=== PATIENT | female | born 1950 | race Caucasian/White ===

== ENCOUNTER 2017-01-03 08:54 | Emergency (ER) | payer OTHER ==
[2017-01-03 09:09] VITALS: BP 120/74
--- NOTE | 2017-01-03 09:32 | UC ---
Complaint Female HPI - HPI Summary HPI Summary: @-3 Days of pain and burning with urination no fevers chills back pain, no nausea or vomiting - History Of Current Complaint Chief Complaint: UCGU Stated Complaint: UTI Time Seen by Provider: 01/03/17 09:20 Hx Obtained From: Patient ?: No Onset/Duration: Gradual Onset, Lasting Days, Still Present Timing: Constant Severity Initially: Mild Severity Currently: Mild Character: Burning Aggravating Factor(s): Urination Alleviating Factor(s): Nothing Associated Signs And Symptoms: Positive: Negative - Allergies/Home Medications Allergies/Adverse Reactions: Allergies Allergy/AdvReac Type Severity Reaction Status Date / Time Hydroxychloroquine Allergy CAUSED Verified 02/10/16 12:21 [From Plaquenil] CARDIAC TOXICITY, 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 2 sinus surgeries-1991, 1996,. gammaknife surgery for skull based tumor 2004,. multiple kidney stone removals,. ICD Pacemaker JUNE 2013, [place]. 2013 - 2014 cardiac catherization x 3, 2 in [place], 1 in [place]. hysterectomy/abdominal surgery 11/22/13. Heart Biopsy Oct 2014. ORIF LEFT ANKLE 07/2015 - Family History Known Family History: Positive: None, Other - no autoimmune disorders - Social History Occupation: Employed Part-time Lives: With Family Alcohol Use: None Substance Use Type: None Substance Use Comment - Amount & Last Used: vicodin as needed Smoking Status (MU): Never Smoked Tobacco Have You Smoked in the Last Year: No - Immunization History Most Recent Influenza Vaccination: season Most Recent Tetanus Shot: 01/2010 Most Recent Pneumonia Vaccination: 2010 Review of Systems Constitutional: Negative Skin: Negative Eyes: Negative ENT: Negative Respiratory: Negative Cardiovascular: Negative Gastrointestinal: Negative Genitourinary: Dysuria, Frequency, Urgency Motor: Negative Neurovascular: Negative Musculoskeletal: Negative Neurological: Negative Psychological: Negative Is Patient Immunocompromised?: Yes All Other Systems Reviewed And Are Negative: Yes Physical Exam Triage Information Reviewed: Yes Appearance: Well-Appearing, No Pain Distress, Well-Nourished Vital Signs: Initial Vital Signs Temp 97.9 F 01/03/17 09:02 Pulse 81 01/03/17 09:02 Resp 18 01/03/17 09:02 BP 120/74 01/03/17 09:02 Pulse Ox 98 01/03/17 09:02 Vital Signs Reviewed: Yes Eye Exam: Normal Eyes: Positive: Conjunctiva Clear ENT Exam: Normal ENT: Positive: Normal ENT inspection, Hearing grossly normal, Pharynx normal. Negative: Nasal drainage, Trismus, Muffled voice, Hoarse voice, Sinus tenderness Dental Exam: Normal Neck exam: Normal Neck: Positive: Supple, Nontender Respiratory Exam: Normal Respiratory: Positive: Chest non-tender, No respiratory distress, No accessory muscle use Cardiovascular Exam: Normal Cardiovascular: Positive: RRR, Pulses Normal, Brisk Capillary Refill Abdominal Exam: Normal Abdomen Description: Positive: No Organomegaly, Soft, Other: - suprapubic discomfort. Negative: CVA Tenderness (R), CVA Tenderness (L), Distended Bowel Sounds: Positive: Present Musculoskeletal Exam: Normal Musculoskeletal: Positive: Strength Intact, ROM Intact, No Edema Neurological Exam: Normal Neurological: Positive: Alert, Muscle Tone Normal Psychological Exam: Normal Skin Exam: Normal Diagnostics - Laboratory Diagnostic Studies Completed/Ordered: U/a +Nitrites, +leukoesterase, +trace lysed blood Complaint Female Dx - Course Course Of Treatment: increase fluids, cipro, follow with Dr. Montemayor - Differential Dx/Diagnosis Provider Diagnoses: UTI Discharge - Discharge Plan Condition: Stable Disposition: HOME Prescriptions: Ciprofloxacin TAB* [Cipro 250 MG Tab*] 250 mg PO BID #6 tab Patient Education Materials: Urinary Tract Infection in Women (ED) Referrals: Bladimir Mack MD [Medical Doctor] - 1 Week
--- NOTE | 2017-01-04 16:34 | UC ---
Progress - Progress Note Progress Note: Urine culture + E. coli await sensitivity Pt on cipro, no change
== END 2017-01-03 09:50 | disposition home or self-care (01) ==
LOC: UCEAST 08:54
DX: N39.0 Urinary tract infection, site not specified (principal); B96.20 Unspecified Escherichia coli [E. coli] as the cause of diseases classified elsewhere
CPT/HCPCS: 81003; 87077; 87086; 87186; 99212; G0463

== ENCOUNTER 2017-05-20 09:28 | Emergency (ER) | payer OTHER ==
[2017-05-20 09:44] VITALS: BP 117/81
--- NOTE | 2017-05-20 11:18 | UC ---
FLU HPI - HPI Summary HPI Summary: Patient is a 66-year-old female with a history of rheumatoid arthritis and chronic sinusitis presenting to the with chief complaint of sinus pressure, body aches, feeling fatigued. Denies any fevers, sweats, chills. Denies any nausea, vomiting, headaches. History of sinus surgery due to chronic sinusitis 2. She was concerned over the flu. She has been otherwise healthy. Immunizations are up-to-date. Symptoms are aggravated with nothing and relieved with nothing. Symptoms began approximately 3 days ago. Denies any cough, or other upper respiratory complaint. Currently taking Humira. - History of Current Complaint Chief Complaint: UCGeneralIllness Stated Complaint: STUFFY NOSE, ACHEY Time Seen by Provider: 05/20/17 10:06 Hx Obtained From: Patient ?: No Onset/Duration: Sudden Onset Severity Currently: Moderate Severity Initially: Moderate Pain Intensity: 6 Pain Scale Used: 0-10 Numeric Associated Signs & Symptoms: Positive: Myalgia, Nasal Congestion Related Hx: Possible Flu/Infectious Exposure - Risk Factors Influenza Risk Factors: Chronic Medical or Immunosuppresive Condition - Taking Humira daily - Allergy/Home Medications Allergies/Adverse Reactions: Allergies Allergy/AdvReac Type Severity Reaction Status Date / Time hydroxychloroquine Allergy cardiac Verified 05/20/17 09:40 [From Plaquenil] issues PMH/Surg Hx/FS Hx/Imm Hx Previously Healthy: Yes - Surgical History Surgical History: Yes Surgery Procedure, Year, and Place: splenectomy 1971,. 2 sinus surgeries-1991, 1996,. gammaknife surgery for skull based tumor 2004,. multiple kidney stone removals,. ICD Pacemaker JUNE 2013, [place]. 2013 - 2014 cardiac catherization x 3, 2 in [place], 1 in [place]. hysterectomy/abdominal surgery 11/22/13. Heart Biopsy Oct 2014. ORIF LEFT ANKLE 07/2015 - Family History Known Family History: Positive: None, Other - no autoimmune disorders - Social History Occupation: Employed Full-time Lives: With Family Alcohol Use: None Substance Use Type: None Substance Use Comment - Amount & Last Used: vicodin as needed Smoking Status (MU): Never Smoked Tobacco Have You Smoked in the Last Year: No - Immunization History Most Recent Influenza Vaccination: season Most Recent Tetanus Shot: 01/2010 Most Recent Pneumonia Vaccination: 2010 Review of Systems Constitutional: Negative Skin: Negative ENT: Nasal Discharge - Yellow, thick mucus, Sinus Congestion, Sinus Pain/ Tenderness Respiratory: Negative Cardiovascular: Negative Motor: Negative Neurovascular: Negative Musculoskeletal: Myalgia Neurological: Negative Psychological: Negative Is Patient Immunocompromised?: No All Other Systems Reviewed And Are Negative: Yes Physical Exam Triage Information Reviewed: Yes Appearance: Well-Appearing, Well-Nourished Vital Signs: Initial Vital Signs Temp 97.7 F 05/20/17 09:41 Pulse 78 05/20/17 09:41 Resp 16 05/20/17 09:41 BP 117/81 05/20/17 09:41 Pulse Ox 99 05/20/17 09:41 Vital Signs Reviewed: Yes Eye Exam: Normal Eyes: Positive: Conjunctiva Clear ENT: Positive: Dental tenderness, Sinus tenderness, Uvula midline. Negative: TM bulging, TM dull, TM red, Tonsillar swelling, Tonsillar exudate Neck exam: Normal Neck: Positive: Supple, No Lymphadenopathy Respiratory Exam: Normal Respiratory: Positive: Chest non-tender, Lungs clear Cardiovascular Exam: Normal Cardiovascular: Positive: RRR Musculoskeletal Exam: Normal Musculoskeletal: Positive: Strength Intact Neurological: Positive: Alert Psychological: Positive: Normal Response To Family Skin Exam: Normal Flu Course/Dx - Course Course Of Treatment: Patient is evaluated for flulike symptoms. Influenza swab negative. Right-sided maxillary sinus pressure and pain with a mild amount of fluctuance. No left-sided maxillary sinus pressure. Frontal sinuses without fluctuance or pain. Patient is afebrile. Other vital signs are stable. I've discussed with the patient treatment options. She is given Flonase and Mucinex. I have also given her a prescription for Augmentin, however she is unsure if she would like to use this at this time. I've advised if symptoms worsen, she is able to pick remover the Augmentin at that time but can defer for now. - Differential Dx/Diagnosis Differential Diagnosis/HQI/PQRI: Upper Respiratory Infection Provider Diagnoses: sinusitis Discharge - Sign-Out/Discharge Documenting (check all that apply): Discharge - Discharge Plan Condition: Stable Disposition: HOME Prescriptions: Amoxicillin/Clavulanate TAB* [Augmentin TAB 875*] 875 mg PO BID #14 tab Fluticasone NASAL SPRAY 50MCG* [Flonase NASAL SPRAY 50MCG*] 2 spray BOTH NARES DAILY #1 btl guaiFENesin ER TAB [Mucinex*] 600 mg PO BID #20 tab.er Patient Education Materials: Sinusitis (ED) Referrals: Aline Beckford MD [Primary Care Provider] - Additional Instructions: Tylenol for discomfort Augmentin twice daily Flonase - 2 sprays each nare once daily Mucinex 1 tab twice daily as needed for sinus pressure humidifier in the home will help Saline nasal rinses Drink plenty of water - Billing Disposition and Condition Condition: STABLE Disposition: HOME
== END 2017-05-20 10:28 | disposition home or self-care (01) ==
LOC: UCEAST 09:28
DX: J32.9 Chronic sinusitis, unspecified (principal); Z95.0 Presence of cardiac pacemaker; Z87.442 Personal history of urinary calculi
CPT/HCPCS: 87502; 99212; G0463

== ENCOUNTER 2018-03-15 09:10 | Emergency (ER) | payer OTHER ==
[2018-03-15 09:23] VITALS: BP 140/71
--- NOTE | 2018-03-15 11:29 | UC ---
Complaint Female HPI - HPI Summary HPI Summary: WOKE UP THIS MORNING 6AM WITH SHARP LEFT PELVIC/LLQ PAIN. DENIES DYSURIA OR URINARY FREQUENCY/URGENCY BUT URINE WAS BLOODY. NO FEVER. SHE HAS SOME MILD INCREASED LEFT LOW BACK PAIN AND NAUSEA. HAS HISTORY OF KIDNEY STONES AND IS CURRENTLY BEING FOLLOWED BY DR. TERRELL WITH UROLOGY - History Of Current Complaint Chief Complaint: UCAbdominalPain Stated Complaint: STOMACH PAIN Time Seen by Provider: 03/15/18 10:39 Hx Obtained From: Patient Onset/Duration: Sudden Onset, Lasting Hours, Still Present - BUT IMPROVED Timing: Constant Severity Initially: Moderate Severity Currently: Mild Pain Intensity: 7 Pain Scale Used: 0-10 Numeric Character: Sharp Aggravating Factor(s): Nothing Alleviating Factor(s): Nothing Associated Signs And Symptoms: Positive: Back Pain, Nausea. Negative: Fever - Allergies/Home Medications Allergies/Adverse Reactions: Allergies Allergy/AdvReac Type Severity Reaction Status Date / Time hydroxychloroquine Allergy cardiac Verified 03/15/18 09:23 [From Plaquenil] issues Home Medications: Home Medications Adalimumab [Humira] 40 mg SC 03/15/18 [History] PMH/Surg Hx/FS Hx/Imm Hx - Additional Past Medical History Additional PMH: CONNECTIVE TISSUE DISORDER Cardiovascular History: Hypertension GI/ History: Kidney Stones - Surgical History Surgical History: Yes Surgery Procedure, Year, and Place: splenectomy 1971,. 2 sinus surgeries-1991, 1996,. gammaknife surgery for skull based tumor 2004,. multiple kidney stone removals,. ICD Pacemaker JUNE 2013, [place]. 2013 - 2014 cardiac catherization x 3, 2 in [place], 1 in [place]. hysterectomy/abdominal surgery 11/22/13. Heart Biopsy Oct 2014. ORIF LEFT ANKLE 07/2015 - Family History Known Family History: Positive: None, Other - no autoimmune disorders - Social History Alcohol Use: None Substance Use Type: None Substance Use Comment - Amount & Last Used: vicodin as needed Smoking Status (MU): Never Smoked Tobacco Have You Smoked in the Last Year: No - Immunization History Most Recent Influenza Vaccination: season Most Recent Tetanus Shot: 01/2010 Most Recent Pneumonia Vaccination: 2010 Review of Systems All Other Systems Reviewed And Are Negative: Yes Constitutional: Positive: Negative Respiratory: Positive: Negative Cardiovascular: Positive: Negative Gastrointestinal: Positive: Abdominal Pain, Nausea Genitourinary: Positive: Hematuria, Other - DISCOLORED URINE. Negative: Dysuria , Frequency, Urgency Physical Exam Triage Information Reviewed: Yes Appearance: Well-Appearing, No Pain Distress, Well-Nourished Vital Signs: Initial Vital Signs Temp 98.2 F 03/15/18 09:19 Pulse 106 03/15/18 09:19 Resp 20 03/15/18 09:19 BP 140/71 03/15/18 09:19 Pulse Ox 100 03/15/18 09:19 Laboratory Tests 03/15/18 10:53 POC Urine Color Red A POC Urine Clarity Turbid POC Urine pH 6.0 POC Ur Specif [place] 1.015 POC Urine Protein 3+ A POC Ur Glucose (UA) Negative POC Urine Ketones 1+ A POC Urine Blood 3+ A POC Urine Nitrite Negative POC Urine Bilirubin 3+ A POC Urine Urobilinogen 1.0 POC U Leukocyte Esteras 3+ A Vital Signs Reviewed: Yes Eyes: Positive: Conjunctiva Clear ENT: Positive: Hearing grossly normal Neck: Positive: Supple Respiratory: Positive: No respiratory distress, No accessory muscle use Cardiovascular: Positive: Pulses Normal Abdomen Description: Positive: Soft, Other: - MILDLY TENDER LLQ. NO REBOUND OR RIGIDITY. Negative: CVA Tenderness (R), CVA Tenderness (L), Distended, Guarding Musculoskeletal: Positive: No Edema Neurological: Positive: Alert Psychological: Positive: Age Appropriate Behavior Skin: Negative: Rashes Complaint Female Dx - Course Course Of Treatment: PATIENT HAS GROSSLY POSITIVE URINE TODAY. SHE HAS KNOWN KIDNEY STONES AND IS BEING ACTIVELY FOLLOWED BY DR. TERRELL WITH UROLOGY. OFFERED CT SCAN TODAY TO EVALUATE THE STATUS OF HER KIDNEY STONES GIVEN HER LEFT PELVIC PAIN AND ABNORMAL URINE. PATIENT DECLINES. STATES SHE FEELS BETTER NOW THAN SHE DID WHEN SHE WOKE UP THIS MORNING AND OPTS FOR ANTIBIOTIC TREATMENT FOR POSSIBLE UTI. SHE HAS FOLLOW-UP WITH UROLOGY NEXT WEEK AND SHE STATES SHE WILL CALL THE OFFICE TODAY TO INFORM THEM OF HER VISIT HERE. PATIENT ADVISED TO GO DIRECTLY TO THE EMERGENCY ROOM IF SHE DEVELOPS INCREASING PAIN, FEVER, PERSISTENT NAUSEA/VOMITING OR ANY OTHER CONCERNING SYMPTOMS. - Differential Dx/Diagnosis Provider Diagnosis: UTI (urinary tract infection) Discharge - Sign-Out/Discharge Documenting (check all that apply): Patient Departure All imaging exams completed and their final reports reviewed: No Studies - Discharge Plan Condition: Stable Disposition: HOME Prescriptions: Ondansetron ODT TAB* [Zofran Odt TAB*] 4 mg PO Q6H PRN #20 tab.odt PRN Reason: Nausea/Vomiting Sulfamethox/Trimethoprim DS* [Bactrim DS 800/160 TAB*] 1 tab PO BID #10 tab Patient Education Materials: Urinary Tract Infection in Women (ED) Referrals: Zoya Chavez MD [Primary Care Provider] - If Needed Bladimir Terrell MD [Medical Doctor] - 1 Week Additional Instructions: YOUR URINE TODAY WAS GROSSLY POSITIVE. WE DISCUSSED CT SCAN TO REEVALUATE THE STATUS OF YOUR KIDNEY STONES VERSUS MORE IMMEDIATE UROLOGY FOLLOW-UP. GIVEN THAT YOU ARE FEELING IMPROVED SINCE THIS MORNING AND HAVE UROLOGY APPOINTMENT UPCOMING IN THE NEXT WEEK YOU HAVE OPTED FOR ANTIBIOTIC TREATMENT TO COVER FOR UTI. BE VIGILANT OF YOUR SYMPTOMS AND GO DIRECTLY TO THE ER IF YOU DEVELOP INCREASING PAIN, FEVER, NAUSEA/VOMITING OR ANY OTHER CONCERNING SYMPTOMS. CALL UROLOGY TODAY TO INFORM THEM OF YOUR SITUATION. - Billing Disposition and Condition Condition: STABLE Disposition: Home
== END 2018-03-15 11:36 | disposition home or self-care (01) ==
LOC: UCEAST 09:10
DX: N39.0 Urinary tract infection, site not specified (principal); I10 Essential (primary) hypertension; R11.0 Nausea; M54.5 Low back pain; Z88.8 Allergy status to other drugs, medicaments and biological substances
CPT/HCPCS: 81003; 87086